=== PATIENT | male | born 1960 | race Caucasian/White ===

== ENCOUNTER 2017-10-20 12:11 | Day surgery (SDC) | payer BC, OTHER ==
[~2017-10-20 12:11] MED LIST: Lactated Ringers 1,000 ML IV SCH
--- NOTE | 2017-10-20 12:35 | PCM.PREANE ---
Preanesthetic Assessment - Procedure Proposed Procedure: Colonoscopy and EGD - Anesthesia/Transfusion/Family Hx Anesthesia History: Prior Anesthesia Without Reaction Family History of Anesthesia Reaction: No Transfusion History: No Prior Transfusion(s) Intubation History: Unknown - Review of Systems General: No Symptoms, Other (Hep B) Pulmonary: No Symptoms Cardiovascular: Other (hypercholesterolemia) Gastrointestinal: Other (GERD) Neurological: Pre-Existing Deficit (pain in shoulder (R) after clavicle fracture and attendant injury to nerve, about 12 yr ago.) Other: Reports: None - Physical Assessment NPO Status Date: 10/19/17 NPO Status Time: 22:00 Height: 5 ft 9 in Weight: 201 lb ASA Class: 2 Mental Status: Alert & Oriented x3 ROM/Head Extension: Full Lungs: Clear to Auscultation, Normal Respiratory Effort Cardiovascular: Regular Rate, Regular Rhythm - Allergies Allergies/Adverse Reactions: Allergies Allergy/AdvReac Type Severity Reaction Status Date / Time No Known Allergies Allergy Verified 10/16/17 14:57 - Blood Blood Available: No Product(s) Available: None - Anesthesia Plan Pre-Op Medication Ordered: None - Acknowledgements Anesthesia Type Planned: MAC Pt an Appropriate Candidate for the Planned Anesthesia: Yes Alternatives and Risks of Anesthesia Discussed w Pt/Guardian: Yes Pt/Guardian Understands and Agrees with Anesthesia Plan: Yes PreAnesthesia Questionnaire - Past Health History Medical/Surgical History: Denies Medical/Surgical History HEENT History: Reports: Other (See Below) Other HEENT History: wears glasses, top denture, hx of fx nose Cardiovascular History: Reports: High Cholesterol Gastrointestinal History: Reports: Colon Polyp, GERD, Hepatitis Other Gastrointestinal History: states "they are unsure if its hepatitis B or from the flu shot"? Genitourinary History: Reports: Renal Calculus Musculoskeletal History: Reports: Arthritis, Fracture Other Musculoskeletal History: multiple fx's, states has pinched nerve in rt shoulder which causes him pain Neurological History: Reports: None Endocrine/Metabolic History: Reports: None Dermatologic History: Reports: Other (See Below) Other Dermatologic History: rash to forehead - Past Surgical History Head Surgeries/Procedures: Reports: None GI Surgical History: Reports: Colonoscopy, Hernia, Inguinal, Other (See Below) Other GI Surgeries/Procedures: inguinal heria repair as an , surgical removal of nerve from groin Musculoskeletal Surgical History: Reports: Shoulder Surgery Other Musculoskeletal Surgeries/Procedures:: rt shoulder arm and wrist surgery - SUBSTANCE USE Smoking Status *Q: Former Smoker Recreational Drug Use History: No - HOME MEDS Home Medications: Home Meds Famotidine 20 mg PO DAILY 10/16/17 [History] Fish Oil/[place]-3 Fatty Acids [Fish Oil 1,000 MG] 2,000 mg PO BID 10/16/17 [ History] Triamcinolone Acetonide [Kenalog] 1 spray TOP ASDIRECTED PRN 10/16/17 [History] atorvaSTATin Calcium [Atorvastatin Calcium] 10 mg PO DAILY 10/16/17 [History] - CURRENT (IN HOUSE) MEDS Current Meds: Current Medications Lactated Ringer's (Ringers, Lactated) 1,000 mls @ 125 mls/hr IV ASDIRECTED MARCO
[2017-10-20] MEDS ORDERED: Midazolam 1 MG/ML 2 ML SDV ONE (13:22)
[2017-10-20] MEDS ORDERED: Propofol 200 MG/20 ML SDV ONE (13:22)
[2017-10-20] MEDS ORDERED: Lidocaine 2% 5 ML SDV ONE (13:23)
[2017-10-20] MEDS ORDERED: fentaNYL 100 MCG/2 ML SDV ONE (13:23)
--- NOTE | 2017-10-20 13:55 | PCM.OPNOTE ---
- General Post-Op/Procedure Note Date of Surgery/Procedure: 10/20/17 Operative Procedure(s): egd w bx. colonoscopy Findings: see [id number] Pre Op Diagnosis: gerd and scrn colonoscopy Post-Op Diagnosis: Same Anesthesia Technique: Moderate Sedation Primary Surgeon: Kt Alamo Pathology: egd bx Complications: None Condition: Good
--- NOTE | 2017-10-20 14:03 | PCM.POSTAN ---
POST ANESTHESIA ASSESSMENT - MENTAL STATUS Mental Status: Alert, Oriented - RESPIRATORY Respiratory Status: Respiratory Rate WNL, Airway Patent, O2 Saturation Stable - CARDIOVASCULAR CV Status: Pulse Rate WNL, Blood Pressure Stable - GASTROINTESTINAL GI Status: No Symptoms - PAIN Pain Score: 0 - POST OP HYDRATION Hydration Status: Adequate & Stable - OBSERVATIONS Free Text/Narrative:: Pt stable with no complaints
--- NOTE | 2017-10-20 14:14 | PCM48HPAN ---
Post Anesthesia Note - EVALUATION WITHIN 48HRS OF ANESTHETIC Vital Signs in Normal Range: Yes Patient Participated in Evaluation: Yes Respiratory Function Stable: Yes Airway Patent: Yes Cardiovascular Function Stable: Yes Hydration Status Stable: Yes Pain Control Satisfactory: Yes Nausea and Vomiting Control Satisfactory: Yes Resp Rate: 14
--- NOTE | 2017-10-20 14:48 | OR ---
SURGEON: Kt Alamo MD DATE OF PROCEDURE: 10/20/2017 PREOPERATIVE DIAGNOSIS: Screening colonoscopy. POSTOPERATIVE DIAGNOSIS: Screening colonoscopy. PROCEDURES PERFORMED: Esophagogastroduodenoscopy with biopsy, and colonoscopy. PROCEDURE IN DETAIL: EGD: The patient was taken to the endoscopy room, and with the MANDARIN TUTOR, Diprivan was administered. A well-lubricated EGD scope was gently inserted through the oropharynx, down the esophagus, passing through the gastroesophageal junction, into the stomach. The mucosa was examined upon the passage. Any etiology will be noted. Once in the stomach, we continued to advance to the distal antrum, passed through the pylorus into the second portion of the duodenum. Again, the mucosa was examined for any abnormality and etiology. The scope was then retrieved back to the stomach and then retroflexed to look at the fundus of the stomach. If a biopsy was indicated, we will biopsy the antrum, body, and gastroesophageal junction. The air will be sucked out while the scope is retrieved to reduce the patient's discomfort. The patient tolerated the procedure well. There were no intraoperative complications. Dr. Alamo was present through the whole procedure. Prior to surgery, a time-out had been called, the patient identified, procedure identified and antibiotic administered. Colonoscopy procedure: The patient was taken to the endoscopy room. A time out was called, patient identified, and procedure identified. Diprivan was then administrated. Patient went from awake to sleep, hearing doctor talking or door closing is normal. Perineum inspection and digital examination were then performed. A well- lubricated colonoscope was gently inserted through the rectum, advanced past the rectosigmoid junction, the descending colon, splenic flexure, transverse colon, hepatic flexure, ascending colon, arrived to the cecum. Cecum was identified as dictated in the finding. Then the scope was carefully withdrawn while attention was paid to the mucosal surface for any abnormality. Air will be sucked out during the scope withdrawal. At the rectum, retroflexed to examine any rectal diseases, fistula or hemorrhoids. Patient tolerated procedure well. There were no intraoperative complications, and Dr. Alaom was present throughout the whole procedure. FINDINGS: EGD findings: 1. The patient is easily sedated with MANDARIN TUTOR and Diprivan. The patient is soundly snoring. 2. Oropharynx and proximal esophagus are free of disease, and GE junction at 40 shows very minimal salmon-color change suggests almost no acid reflux, and stomach rugae is normal in appearance, and antrum is normal in appearance, and duodenum is grossly normal. Retroflexed look at the fundus of stomach, and there was no hiatal hernia. Biopsy done at antrum, body, GE junction at 40, and sucked out the gas while scope pulling out. The patient does not have food particle, bile, blood, or ulcer in the stomach. Colonoscopy findings: 1. The patient is easily sedated with MANDARIN TUTOR and Diprivan. The patient is soundly snoring. 2. Bowel prep is average with some liquid stool. No semi-formed stool. 3. Colon is rather straight forward. Cecum indicated by ileocecal fold, one- to-one indentation, light emittance, and appendiceal orifice. Mucosa examined upon scope pulling out. The patient does not have diverticulosis, polyp, mass, growth, inflammation, stricture, ulceration, or AV malformation. The patient does have mild internal hemorrhoids. No external hemorrhoids. The patient would benefit from repeat colonoscopy in 10 years from today or if clinically indicated otherwise. JOHN / SABINO /[id number]
[2017-10-20] MEDS ORDERED: Benzocaine 20% Topical Spray UD MUCMEM ONE (15:00)
== END 2017-10-20 14:47 | disposition home or self-care (01) ==
LOC: MW.SDS 12:11
PROVIDERS: ATTEND Surgery
DX: Z12.11 Encounter for screening for malignant neoplasm of colon (principal); K64.8 Other hemorrhoids; K29.50 Unspecified chronic gastritis without bleeding; B19.10 Unspecified viral hepatitis B without hepatic coma; E78.00 Pure hypercholesterolemia, unspecified; M06.9 Rheumatoid arthritis, unspecified; Z79.899 Other long term (current) drug therapy; Z98.890 Other specified postprocedural states; Z87.891 Personal history of nicotine dependence
CPT/HCPCS: 43239; 45378; A9270; J2250; J2704; J3010; J7120; 88305; 88312

== ENCOUNTER 2018-07-15 16:31 | Emergency (ER) | payer BC, OTHER ==
[2018-07-15] MEDS ORDERED: Sodium Chloride 0.9% 10 ML Syringe FLUSH PRN (16:57)
[2018-07-15] MEDS ORDERED: Sodium Chloride 0.9% 2.5 ML Syringe FLUSH PRN (16:57)
--- NOTE | 2018-07-15 16:58 | EDM.PDOC ---
ED HPI GENERAL MEDICAL PROBLEM - General Chief Complaint: Flank Pain Stated Complaint: KIDNEY STONES Time Seen by Provider: 07/15/18 16:33 Source of Information: Reports: Patient History Limitations: Reports: No Limitations - History of Present Illness INITIAL COMMENTS - FREE TEXT/NARRATIVE: History of present illness: []Patient started having left flank pain is ago. He has a history of kidney stones and states it feels the same. Subsided a little yesterday and came back worse today. He denies any fevers, chills, nausea, vomiting or diarrhea. Review of systems: As per history of present illness and below otherwise all systems reviewed and negative. Past medical history: As per history of present illness and as reviewed below otherwise noncontributory. Surgical history: As per history of present illness and as reviewed below otherwise noncontributory. Social history: No reported history of drug or alcohol abuse. Family history: As per history of present illness and as reviewed below otherwise noncontributory. Physical exam: General: Well developed, well nourished in mild painful distress HEENT: Atraumatic, normocephalic, pupils reactive, negative for conjunctival pallor or scleral icterus, mucous membranes moist, throat clear, neck supple, nontender, trachea midline. Lungs: Clear to auscultation, breath sounds equal bilaterally, chest nontender. Heart: S1S2, regular, negative for clicks, rubs, or JVD. Abdomen: NABS, Soft, nondistended, nontender. Negative for masses or hepatosplenomegaly. Negative for costovertebral tenderness. Pelvis: Stable nontender. Genitourinary: Deferred. Rectal: Deferred. Extremities: Atraumatic, negative for cords or calf pain. Neurovascular unremarkable. Neuro: Awake, alert, oriented. Cranial nerves II through XII unremarkable. Cerebellum unremarkable. Motor and sensory unremarkable throughout. Exam nonfocal. Skin:warm and dry Diagnostics: CBC, chemistry-BUN/creatinine is 10/0.9, UA, CT abdomen pelvis without contrast : An acutely obstructing 4 mm stone is present at the left ureterovesical junction. Mild left hydroureter and hydronephrosis is demonstrated along with periureteral and perinephric stranding. A 2 mm stone is present in the left renal collecting system. No other stone is evident. The kidneys are otherwise unremarkable except for several small parenchymal cysts bilaterally. The bladder is grossly negative. Therapeutics: IV hydration, Toradol, Flomax, Dilaudid ED Course: Stable Impression: Ureterolithiasis with obstructing 4 mm stone Prescriptions: Tramadol the instruments, Flomax E prescribed Plan: Take meds as directed, follow up with neurology physician, return to ER if symptoms worsen or change. Definitive disposition and diagnosis as appropriate pending reevaluation and review of above. left flank Pain Score (Numeric/FACES): 10 - Related Data Allergies Allergy/AdvReac Type Severity Reaction Status Date / Time No Known Allergies Allergy Verified 07/15/18 16:50 Home Meds: Home Meds atorvaSTATin Calcium [Atorvastatin Calcium] 10 mg PO DAILY 10/16/17 [History] Tamsulosin HCl [Flomax] 0.4 mg PO DAILY #14 cap.er.24h 07/15/18 [Rx] Urinary Medication 07/15/18 [History] Past Medical History - Past Health History Medical/Surgical History: Denies Medical/Surgical History HEENT History: Reports: Other (See Below) Other HEENT History: wears glasses, top denture, hx of fx nose Cardiovascular History: Reports: High Cholesterol Respiratory History: Reports: None Gastrointestinal History: Reports: Colon Polyp, GERD, Hepatitis Other Gastrointestinal History: states "they are unsure if its hepatitis B or from the flu shot"? Genitourinary History: Reports: Renal Calculus Musculoskeletal History: Reports: Arthritis, Fracture Other Musculoskeletal History: multiple fx's, states has pinched nerve in rt shoulder which causes him pain Neurological History: Reports: None Psychiatric History: Reports: None Endocrine/Metabolic History: Reports: None Hematologic History: Reports: None Immunologic History: Reports: None Oncologic (Cancer) History: Reports: None Dermatologic History: Reports: Other (See Below) Other Dermatologic History: rash to forehead - Infectious Disease History Infectious Disease History: Reports: Hepatitis B - Past Surgical History Head Surgeries/Procedures: Reports: None HEENT Surgical History: Reports: None Cardiovascular Surgical History: Reports: None Respiratory Surgical History: Reports: None GI Surgical History: Reports: Colonoscopy, Hernia, Inguinal, Other (See Below) Other GI Surgeries/Procedures: inguinal heria repair as an infant, surgical removal of nerve from groin Male Surgical History: Reports: None Endocrine Surgical History: Reports: None Neurological Surgical History: Reports: None Musculoskeletal Surgical History: Reports: Shoulder Surgery Other Musculoskeletal Surgeries/Procedures:: rt shoulder arm and wrist surgery Oncologic Surgical History: Reports: None Dermatological Surgical History: Reports: None Social & Family History - Family History Family Medical History: Noncontributory - Tobacco Use Smoking Status *Q: Former Smoker Used Tobacco, but Quit: Yes Month/Year Tobacco Last Used: 5 years - Caffeine Use Caffeine Use: Reports: Coffee - Recreational Drug Use Recreational Drug Use: No ED ROS GENERAL - Review of Systems Review Of Systems: ROS reveals no pertinent complaints other than HPI. ED EXAM, RENAL/ - Physical Exam Exam: See Below (See history of present illness) Course - Vital Signs Last Recorded V/S: Last Vital Signs Temp 97.8 F 07/15/18 16:51 Pulse 72 07/15/18 16:51 Resp 18 07/15/18 16:51 BP 129/106 H 07/15/18 16:51 Pulse Ox 97 07/15/18 16:51 - Orders/Labs/Meds Orders: Active Orders 24 hr Category Date Time Status Sodium Chloride 0.9% [Saline Flush] Med 07/15/18 16:57 Active 10 ml FLUSH ASDIRECTED PRN Sodium Chloride 0.9% [Saline Flush] Med 07/15/18 16:57 Active 2.5 ml FLUSH ASDIRECTED PRN Saline Lock Insert [OM.PC] Stat Oth 07/15/18 16:56 Ordered Medication Orders Sodium Chloride (Saline Flush) 10 ml FLUSH ASDIRECTED PRN PRN Reason: Keep Vein Open Last Admin: 07/15/18 17:30 Dose: 10 ml Sodium Chloride (Saline Flush) 2.5 ml FLUSH ASDIRECTED PRN PRN Reason: Keep Vein Open Last Admin: 07/15/18 17:30 Dose: 2.5 ml Labs: Laboratory Tests 07/15/18 07/15/18 07/15/18 Range/Units 16:52 17:02 17:02 WBC 9.04 (4.0-11.0) K/uL RBC 4.98 (4.50-5.90) M/uL Hgb 15.9 (13.0-17.0) g/dL Hct 45.3 (38.0-50.0) % MCV 91.0 (80.0-98.0) fL MCH 31.9 (27.0-32.0) pg MCHC 35.1 (31.0-37.0) g/dL RDW Std Deviation 42.0 (28.0-62.0) fl RDW Coeff of Joelle 13 (11.0-15.0) % Plt Count 152 (150-400) K/uL MPV 9.90 (7.40-12.00) fL Neut % (Auto) 83.4 H (48.0-80.0) % Lymph % (Auto) 10.3 L (16.0-40.0) % [place] % (Auto) 6.0 (0.0-15.0) % Eos % (Auto) 0.2 (0.0-7.0) % Baso % (Auto) 0.1 (0.0-1.5) % Neut # (Auto) 7.5 H (1.4-5.7) K/uL Lymph # (Auto) 0.9 (0.6-2.4) K/uL [place] # (Auto) 0.5 (0.0-0.8) K/uL Eos # (Auto) 0.0 (0.0-0.7) K/uL Baso # (Auto) 0.0 (0.0-0.1) K/uL Nucleated RBC % 0.0 /100WBC Nucleated RBCs # 0 K/uL Sodium 139 (136-148) mmol/L Potassium 4.4 (3.5-5.1) mmol/L Chloride 101 (98-107) mmol/L Carbon Dioxide 25.7 (21.0-32.0) mmol/L BUN 10 (7.0-18.0) mg/dL Creatinine 0.9 (0.8-1.3) mg/dL Est Cr Clr Drug Dosing 87.28 mL/min Estimated GFR (MDRD) > 60.0 ml/min Glucose 107 H (74-106) mg/dL Calcium 9.6 (8.5-10.1) mg/dL Total Bilirubin 0.7 (0.2-1.0) mg/dL AST 22 (15-37) IU/L ALT 25 (14-63) IU/L Alkaline Phosphatase 66 (46-116) U/L Total Protein 8.1 (6.4-8.2) g/dL Albumin 4.5 (3.4-5.0) g/dL Globulin 3.6 (2.6-4.0) g/dL Albumin/Globulin Ratio 1.2 (0.9-1.6) Urine Color YELLOW Urine Appearance CLEAR Urine pH 6.5 (5.0-8.0) Ur Specific [place] <= 1.005 (1.001-1.035) Urine Protein NEGATIVE (NEGATIVE) mg/dL Urine Glucose (UA) NEGATIVE (NEGATIVE) mg/dL Urine Ketones NEGATIVE (NEGATIVE) mg/dL Urine Occult Blood SMALL H (NEGATIVE) Urine Nitrite NEGATIVE (NEGATIVE) Urine Bilirubin NEGATIVE (NEGATIVE) Urine Urobilinogen 0.2 (<2.0) EU/dL Ur Leukocyte Esterase NEGATIVE (NEGATIVE) Urine RBC 0-1 (0-2/HPF) Urine WBC 0-1 (0-5/HPF) Ur Epithelial Cells RARE (NONE-FEW) Urine Bacteria RARE (NEGATIVE) Meds: Medications Generic Name Dose Route Start Last Admin Trade Name Ravinder PRN Reason Stop Dose Admin Sodium Chloride 10 ml 07/15/18 16:57 07/15/18 17:30 Saline Flush FLUSH 10 ml ASDIRECTED PRN Administration Keep Vein Open Sodium Chloride 2.5 ml 07/15/18 16:57 07/15/18 17:30 Saline Flush FLUSH 2.5 ml ASDIRECTED PRN Administration Keep Vein Open Discontinued Medications Generic Name Dose Route Start Last Admin Trade Name Freq PRN Reason Stop Dose Admin Hydromorphone HCl 0.5 mg 07/15/18 19:05 Dilaudid IVPUSH 07/15/18 19:06 ONETIME ONE Sodium Chloride 1,000 mls @ 999 mls/hr 07/15/18 17:20 07/15/18 17:30 Normal Saline IV 07/15/18 18:20 999 mls/hr .Bolus ONE Administration Ketorolac Tromethamine 30 mg 07/15/18 17:24 07/15/18 17:30 Toradol IVPUSH 07/15/18 17:25 30 mg ONETIME ONE Administration Ondansetron HCl 4 mg 07/15/18 19:05 Zofran IVPUSH 07/15/18 19:06 ONETIME ONE Tamsulosin HCl 0.4 mg 07/15/18 19:06 Flomax PO 07/15/18 19:07 ONETIME ONE Departure - Departure Time of Disposition: 19:12 Disposition: Home, Self-Care 01 Condition: Good Clinical Impression: Ureterolithiasis - Discharge Information *PRESCRIPTION DRUG MONITORING PROGRAM REVIEWED*: No *COPY OF PRESCRIPTION DRUG MONITORING REPORT IN PATIENT SEGUN: No Prescriptions: Tamsulosin HCl [Flomax] 0.4 mg PO DAILY #14 cap.er.24h Referrals: PCP,Unknown [Primary Care Provider] - Forms: ED Department Discharge Additional Instructions: The following information is given to patients seen in the emergency department who are being discharged to home. This information is to outline your options for follow-up care. We provide all patients seen in our emergency department with a follow-up referral. The need for follow-up, as well as the timing and circumstances, are variable depending upon the specifics of your emergency department visit. If you don't have a primary care physician on staff, we will provide you with a referral. We always advise you to contact your personal physician following an emergency department visit to inform them of the circumstance of the visit and for follow-up with them and/or the need for any referrals to a consulting specialist. The emergency department will also refer you to a specialist when appropriate. This referral assures that you have the opportunity for follow-up care with a specialist. All of these measure are taken in an effort to provide you with optimal care, which includes your follow-up. Under all circumstances we always encourage you to contact your private physician who remains a resource for coordinating your care. When calling for follow-up care, please make the office aware that this follow-up is from your recent emergency room visit. If for any reason you are refused follow-up, please contact the [facility] Emergency Department at and asked to speak to the emergency department charge nurse. Take meds as directed, follow up with your primary care physician, return to ER if symptoms worsen or change. Follow-up with: [facility] - Urology [address] [place] [id number] - My Orders Last 24 Hours: My Active Orders 07/15/18 16:56 Saline Lock Insert [OM.PC] Stat 07/15/18 16:57 Sodium Chloride 0.9% [Saline Flush] 10 ml FLUSH ASDIRECTED PRN Sodium Chloride 0.9% [Saline Flush] 2.5 ml FLUSH ASDIRECTED PRN - Assessment/Plan Last 24 Hours: My Active Orders 07/15/18 16:56 Saline Lock Insert [OM.PC] Stat 07/15/18 16:57 Sodium Chloride 0.9% [Saline Flush] 10 ml FLUSH ASDIRECTED PRN Sodium Chloride 0.9% [Saline Flush] 2.5 ml FLUSH ASDIRECTED PRN
[2018-07-15] MEDS ORDERED: Sodium Chloride 0.9% 1,000 ML IV ONE (17:20)
[2018-07-15] MEDS ORDERED: Ketorolac 30 MG/ML SDV IVPUSH ONE (17:24)
[2018-07-15 17:54] LABS: CHLORIDE,CL 101 mmol/L (98-107); SODIUM,NA 139 mmol/L (136-148)
--- NOTE | 2018-07-15 19:01 | CT ---
INDICATION: Left flank pain since Monday. History of stones. TECHNIQUE: Volumetric helical scanning of the abdomen and pelvis was performed without contrast material. Coronal and sagittal reconstructions were obtained. COMPARISON: Abdomen/pelvis CT of 10/07/2013. FINDINGS: An acutely obstructing 4 mm stone is present at the left ureterovesical junction. Mild left hydroureter and hydronephrosis is demonstrated along with periureteral and perinephric stranding. A 2 mm stone is present in the left renal collecting system. No other stone is evident. The kidneys are otherwise unremarkable except for several small parenchymal cysts bilaterally. The bladder is grossly negative. The prostate is mild to moderately enlarged. No free fluid is evident. The liver is normal in size, shape and attenuation. No bile duct dilation is evident. The spleen is within normal limits. The adrenal glands are unremarkable. The pancreas is within normal limits. No lymphadenopathy is evident. The bowel is unremarkable. The lung bases are clear. The heart is normal in size. IMPRESSION: 1. Acutely obstructing 4 mm left UVJ stone. 2. 2 mm left renal collecting system stone and small renal parenchymal cysts bilaterally. 3. Mild to moderate prostate enlargement. Please note that all CT scans at this facility use dose modulation, iterative reconstruction, and/or weight-based dosing when appropriate to reduce radiation dose to as low as reasonably achievable. Dictated by Willy Cooper MD @ Jul 15 2018 6:53PM Signed by Dr. Willy Cooper @ Jul 15 2018 6:59PM
[2018-07-15] MEDS ORDERED: HYDROmorphone 2 MG/ML Syringe IVPUSH ONE (19:05)
[2018-07-15] MEDS ORDERED: Ondansetron 4 MG/2 ML SDV IVPUSH ONE (19:05)
[2018-07-15] MEDS ORDERED: Tamsulosin 0.4 MG Cap.ER PO ONE (19:06)
== END 2018-07-15 19:52 | disposition home or self-care (01) ==
LOC: MW.ED 16:31
DX: N13.2 Hydronephrosis with renal and ureteral calculous obstruction (principal); Z87.891 Personal history of nicotine dependence
CPT/HCPCS: 36415; 74176; 80053; 81001; 85025; 96361; 96374; 96375; 99284; A9270; J1170; J1885; J2405; J7040

== ENCOUNTER 2021-02-19 12:08 | Emergency (ER) | payer OTHER ==
--- NOTE | 2021-02-19 13:26 | EDM.PDOCBH ---
ED HPI GENERAL MEDICAL PROBLEM - General Chief Complaint: Behavioral/Psych Stated Complaint: COMMITAL Time Seen by Provider: 02/19/21 12:26 Source of Information: Reports: Police History Limitations: Reports: No Limitations - History of Present Illness INITIAL COMMENTS - FREE TEXT/NARRATIVE: HISTORY AND PHYSICAL: History of present illness: The patient is a 60-year-old male who presents to the emergency department in police custody with a court ordered committal. A petition from the patient's daughter Sheela Swain expresses concerns over suicidal statements that the patient has made on Facebook claiming that he cannot go on like this and that he has a shooting life. Sheela and numerous family members and friends believe that he will hurt himself or use aggressive actions towards his neighbors apparently apparently an every house and all of his neighbors the patient believes they are playing a stereo very loudly especially at night. He will stand outside and flipped the neighbors often yelling profanities. The petition indicates that the patient has taken fentanyl and cocaine during his younger years and they believe he is been using alcohol along with marijuana for his anxiety. He had been prescribed medication for depression and the family felt like he was getting better. He then stopped taking it because it made him sleep all the time. Patient stopped going to his medical appointments due to not sleeping at night because he hears a loud stereo. Review of systems: As per history of present illness and below otherwise all systems reviewed and negative. Past medical history: As per history of present illness and as reviewed below otherwise noncontributory. Surgical history: As per history of present illness and as reviewed below otherwise noncontributory. Social history: See social history for further information Family history: As per history of present illness and as reviewed below otherwise noncontributory. Physical exam: General: Well developed and well nourished. Alert and orientated x 3. Nontoxic in appearance and in no acute distress. Vital signs are stable and have been reviewed by me. Nursing notes were reviewed. HEENT: Atraumatic, normocephalic, pupils equal and reactive bilaterally, negative for conjunctival pallor or scleral icterus, mucous membranes moist, TMs normal bilaterally, throat clear, neck supple, nontender, trachea midline. No drooling or trismus noted. No meningeal signs. No hot potato voice noted. Lungs: Clear to auscultation bilaterally. No wheezes, rales, or rhonchi. Chest nontender. Normal work of breathing, no accessory muscles used. Heart: S1S2, regular rate and rhythm without overt murmur, gallops, or rubs. No JVD. No peripheral edema Abdomen: Soft, nondistended, nontender. Normoactive bowel sounds. Negative for masses or costovertebral tenderness. Skin: Intact, warm, dry. No lesions or rashes noted. Hematologic: No petechiae or purpra. Mucosa appropriate color and normal nail bed color and refill. Extremities: Atraumatic, moves all extremities per self without difficulty or deficits, negative for cords or calf pain. Neurovascular unremarkable. Neuro: Awake, alert, oriented. Cranial nerves II through XII unremarkable. Cerebellum unremarkable. Motor and sensory unremarkable throughout. Exam nonfocal. Psychiatric: Mood and affect are appropriate. Normal thought process. Answering questions appropriately. Notes: *This patient was seen and evaluated during the 2019 SARS-CoV-2 novel coronavirus pandemic period. Community viral transmission is ongoing at time of this encounter and the emergency department is operating under pandemic response procedures. Above the patient is a 60-year-old man who presents with a court ordered committal for mental health for possible self-harm and is in police custody. Upon first interviewing the patient he seemed hostile, but after speaking with him he calmed down and allowed for an exam. The patient's exam is benign except for a fast heart rate of 122. His EKG had a heart rate of 98. I believe the patient is just very anxious. We will do a behavioral health work-up and attempt to find placement. The patient's blood work is essentially negative except for a glucose elevated at 155. The patient is positive for cannabis. I spoke with regarding involuntary commitment and he felt that the patient met criteria. We will arrange for transportation. Patient is being transported via police department. Diagnostics: CBC, CMP, TSH, EKG, urinalysis, urine drug screen, troponin Impression: Suicidal ideation/involuntary commitment Definitive disposition and diagnosis as appropriate pending reevaluation and review of above. Generalized Pain Score (Numeric/FACES): 8 - Related Data Allergies Allergy/AdvReac Type Severity Reaction Status Date / Time No Known Allergies Allergy Verified 02/19/21 12:32 Home Meds: Home Meds . [Unable to Verify Home Med List] 02/19/21 [History] Past Medical History - Past Health History Medical/Surgical History: Denies Medical/Surgical History HEENT History: Reports: Other (See Below) Other HEENT History: wears glasses, top denture, hx of fx nose Cardiovascular History: Reports: High Cholesterol Respiratory History: Reports: None Gastrointestinal History: Reports: Colon Polyp, GERD, Hepatitis Other Gastrointestinal History: states "they are unsure if its hepatitis B or from the flu shot"? Genitourinary History: Reports: Renal Calculus Musculoskeletal History: Reports: Arthritis, Fracture Other Musculoskeletal History: multiple fx's, states has pinched nerve in rt shoulder which causes him pain Neurological History: Reports: None Psychiatric History: Reports: None Endocrine/Metabolic History: Reports: None Hematologic History: Reports: None Immunologic History: Reports: None Oncologic (Cancer) History: Reports: None Dermatologic History: Reports: Other (See Below) Other Dermatologic History: rash to forehead - Infectious Disease History Infectious Disease History: Reports: Hepatitis B - Past Surgical History Head Surgeries/Procedures: Reports: None HEENT Surgical History: Reports: None Cardiovascular Surgical History: Reports: None Respiratory Surgical History: Reports: None GI Surgical History: Reports: Colonoscopy, Hernia, Inguinal, Other (See Below) Other GI Surgeries/Procedures: inguinal heria repair as an infant, surgical removal of nerve from groin Male Surgical History: Reports: None Endocrine Surgical History: Reports: None Neurological Surgical History: Reports: None Musculoskeletal Surgical History: Reports: Shoulder Surgery Other Musculoskeletal Surgeries/Procedures:: rt shoulder arm and wrist surgery Oncologic Surgical History: Reports: None Dermatological Surgical History: Reports: None Social & Family History - Family History Family Medical History: No Pertinent Family History - Caffeine Use Caffeine Use: Reports: Coffee ED ROS GENERAL - Review of Systems Review Of Systems: Comprehensive ROS is negative, except as noted in HPI. ED EXAM, BEHAVIORAL HEALTH - Physical Exam Exam: See Below (See dictation) COURSE, BEHAVIORAL HEALTH COMP - Course Vital Signs: Last Vital Signs Temp 98.0 F 02/19/21 12:28 Pulse 110 H 02/19/21 15:17 Resp 16 02/19/21 15:17 BP 175/104 H 02/19/21 15:17 Pulse Ox 96 02/19/21 15:17 Orders, Labs, Meds: Laboratory Tests 02/19/21 02/19/21 02/19/21 Range/Units 13:40 13:52 13:52 WBC 10.39 (4.0-11.0) K/uL RBC 5.18 (4.50-5.90) M/uL Hgb 16.6 (13.0-17.0) g/dL Hct 47.4 (38.0-50.0) % MCV 91.5 (80.0-98.0) fL MCH 32.0 (27.0-32.0) pg MCHC 35.0 (31.0-37.0) g/dL RDW Std Deviation 42.7 (28.0-62.0) fl RDW Coeff of Joelle 13 (11.0-15.0) % Plt Count 171 (150-400) K/uL MPV 9.80 (7.40-12.00) fL Neut % (Auto) 86.4 H (48.0-80.0) % Lymph % (Auto) 8.0 L (16.0-40.0) % Bourbon % (Auto) 5.3 (0.0-15.0) % Eos % (Auto) 0.2 (0.0-7.0) % Baso % (Auto) 0.1 (0.0-1.5) % Neut # (Auto) 9.0 H (1.4-5.7) K/uL Lymph # (Auto) 0.8 (0.6-2.4) K/uL Bourbon # (Auto) 0.6 (0.0-0.8) K/uL Eos # (Auto) 0.0 (0.0-0.7) K/uL Baso # (Auto) 0.0 (0.0-0.1) K/uL Nucleated RBC % 0.0 /100WBC Nucleated RBCs # 0 K/uL Sodium 138 (136-148) mmol/L Potassium 4.0 (3.5-5.1) mmol/L Chloride 100 (98-107) mmol/L Carbon Dioxide 26.3 (21.0-32.0) mmol/L BUN 16 (7.0-18.0) mg/dL Creatinine 0.9 (0.8-1.3) mg/dL Est Cr Clr Drug Dosing 85.10 mL/min Estimated GFR (MDRD) > 60.0 ml/min Glucose 153 H (74-106) mg/dL Calcium 9.7 (8.5-10.1) mg/dL Magnesium 1.9 (1.8-2.4) mg/dL Total Bilirubin 0.4 (0.2-1.0) mg/dL AST 16 (15-37) IU/L ALT 26 (14-63) IU/L Alkaline Phosphatase 80 (46-116) U/L Troponin I < 0.050 (0.000-0.056) ng/mL Total Protein 8.1 (6.4-8.2) g/dL Albumin 4.3 (3.4-5.0) g/dL Globulin 3.8 (2.6-4.0) g/dL Albumin/Globulin Ratio 1.1 (0.9-1.6) TSH, Ultra Sensitive 1.41 (0.36-3.74) uIU/mL Urine Color Urine Appearance Urine pH (5.0-8.0) Ur Specific Pender (1.001-1.035) Urine Protein (NEGATIVE) mg/dL Urine Glucose (UA) (NEGATIVE) mg/dL Urine Ketones (NEGATIVE) mg/dL Urine Occult Blood (NEGATIVE) Urine Nitrite (NEGATIVE) Urine Bilirubin (NEGATIVE) Urine Urobilinogen (<2.0) EU/dL Ur Leukocyte Esterase (NEGATIVE) Urine RBC (0-2/HPF) Urine WBC (0-5/HPF) Ur Epithelial Cells (NONE-FEW) Urine Bacteria (NEGATIVE) Urine Mucus (NONE-MOD) Salicylates 1.9 (0-20) mg/dL Urine Opiates Screen (NEGATIVE) Ur Oxycodone Screen (NEGATIVE) Urine Methadone Screen (NEGATIVE) Acetaminophen <2.0 ug/mL Ur Barbiturates Screen (NEGATIVE) Ur Phencyclidine Scrn (NEGATIVE) Ur Amphetamine Screen (NEGATIVE) U Methamphetamines Scrn (NEGATIVE) U Benzodiazepines Scrn (NEGATIVE) U Cocaine Metab Screen (NEGATIVE) U Marijuana (THC) Screen (NEGATIVE) Ethyl Alcohol < 3.0 mg/dL Influenza Type A RNA NEGATIVE (NEGATIVE) Influenza Type B RNA NEGATIVE (NEGATIVE) SARS-CoV-2 RNA (KARSTEN) NEGATIVE (NEGATIVE) 02/19/21 02/19/21 Range/Units 14:00 14:00 WBC (4.0-11.0) K/uL RBC (4.50-5.90) M/uL Hgb (13.0-17.0) g/dL Hct (38.0-50.0) % MCV (80.0-98.0) fL MCH (27.0-32.0) pg MCHC (31.0-37.0) g/dL RDW Std Deviation (28.0-62.0) fl RDW Coeff of Joelle (11.0-15.0) % Plt Count (150-400) K/uL MPV (7.40-12.00) fL Neut % (Auto) (48.0-80.0) % Lymph % (Auto) (16.0-40.0) % Bourbon % (Auto) (0.0-15.0) % Eos % (Auto) (0.0-7.0) % Baso % (Auto) (0.0-1.5) % Neut # (Auto) (1.4-5.7) K/uL Lymph # (Auto) (0.6-2.4) K/uL Bourbon # (Auto) (0.0-0.8) K/uL Eos # (Auto) (0.0-0.7) K/uL Baso # (Auto) (0.0-0.1) K/uL Nucleated RBC % /100WBC Nucleated RBCs # K/uL Sodium (136-148) mmol/L Potassium (3.5-5.1) mmol/L Chloride (98-107) mmol/L Carbon Dioxide (21.0-32.0) mmol/L BUN (7.0-18.0) mg/dL Creatinine (0.8-1.3) mg/dL Est Cr Clr Drug Dosing mL/min Estimated GFR (MDRD) ml/min Glucose (74-106) mg/dL Calcium (8.5-10.1) mg/dL Magnesium (1.8-2.4) mg/dL Total Bilirubin (0.2-1.0) mg/dL AST (15-37) IU/L ALT (14-63) IU/L Alkaline Phosphatase (46-116) U/L Troponin I (0.000-0.056) ng/mL Total Protein (6.4-8.2) g/dL Albumin (3.4-5.0) g/dL Globulin (2.6-4.0) g/dL Albumin/Globulin Ratio (0.9-1.6) TSH, Ultra Sensitive (0.36-3.74) uIU/mL Urine Color YELLOW Urine Appearance CLEAR Urine pH 6.0 (5.0-8.0) Ur Specific Pender 1.015 (1.001-1.035) Urine Protein NEGATIVE (NEGATIVE) mg/dL Urine Glucose (UA) NEGATIVE (NEGATIVE) mg/dL Urine Ketones NEGATIVE (NEGATIVE) mg/dL Urine Occult Blood NEGATIVE (NEGATIVE) Urine Nitrite NEGATIVE (NEGATIVE) Urine Bilirubin NEGATIVE (NEGATIVE) Urine Urobilinogen 0.2 (<2.0) EU/dL Ur Leukocyte Esterase NEGATIVE (NEGATIVE) Urine RBC NONE SEEN (0-2/HPF) Urine WBC 0-2 (0-5/HPF) Ur Epithelial Cells OCCASIONAL (NONE-FEW) Urine Bacteria FEW (NEGATIVE) Urine Mucus LIGHT (NONE-MOD) Salicylates (0-20) mg/dL Urine Opiates Screen NEGATIVE (NEGATIVE) Ur Oxycodone Screen NEGATIVE (NEGATIVE) Urine Methadone Screen NEGATIVE (NEGATIVE) Acetaminophen ug/mL Ur Barbiturates Screen NEGATIVE (NEGATIVE) Ur Phencyclidine Scrn NEGATIVE (NEGATIVE) Ur Amphetamine Screen NEGATIVE (NEGATIVE) U Methamphetamines Scrn NEGATIVE (NEGATIVE) U Benzodiazepines Scrn NEGATIVE (NEGATIVE) U Cocaine Metab Screen NEGATIVE (NEGATIVE) U Marijuana (THC) Screen POSITIVE (NEGATIVE) Ethyl Alcohol mg/dL Influenza Type A RNA (NEGATIVE) Influenza Type B RNA (NEGATIVE) SARS-CoV-2 RNA (KARSTEN) (NEGATIVE) Departure - Departure Time of Disposition: 15:35 Disposition: DC/Tfer to Psych Hosp/Unit 65 Condition: Good Clinical Impression: Self-harm - Discharge Information *PRESCRIPTION DRUG MONITORING PROGRAM REVIEWED*: Not Applicable *COPY OF PRESCRIPTION DRUG MONITORING REPORT IN PATIENT SEGUN: Not Applicable Referrals: PCP,None [Primary Care Provider] - Forms: ED Department Discharge Sepsis Event Note (ED) - Evaluation Sepsis Screening Result: No Definite Risk - Focused Exam Vital Signs: Vital Signs Temp Pulse Resp BP Pulse Ox 02/19/21 15:17 110 H 16 175/104 H 96 02/19/21 12:28 98.0 F 120 H 18 187/120 H 97
--- NOTE | 2021-02-19 13:28 | PCM.EKG ---
#1 Interpretation EKG Date: 02/19/21 Time: 13:28 EKG Interpretation Comments: Sinus tachycardia rate of 114 some findings of LVH but no acute ischemia
[2021-02-19 14:23] LABS: CORONAVIRUS COVID-19 NAA NEGATIVE (NEGATIVE); INFLUENZA A NAA NEGATIVE (NEGATIVE); INFLUENZA B NAA NEGATIVE (NEGATIVE)
[2021-02-19 15:17] LABS: ACETAMINOPHEN <2.0 ug/mL; BLOOD UREA NITROGEN,BUN 16 mg/dL (7.0-18.0); CARBON DIOXIDE,CO2 26.3 mmol/L (21.0-32.0); CHLORIDE,CL 100 mmol/L (98-107); GLUCOSE RANDOM 153 mg/dL (74-106); SODIUM,NA 138 mmol/L (136-148)
== END 2021-02-19 16:17 ==
LOC: MW.ED 12:08
DX: R45.851 Suicidal ideations (principal); Z20.822 Contact with and (suspected) exposure to COVID-19
CPT/HCPCS: 0240U; 36415; 80053; 80143; 80179; 80305; 80307; 81001; 83735; 84443; 84484; 85025; 93005; 99285

== ENCOUNTER 2023-02-03 16:23 | Emergency (ER) | payer SELFPAY ==
[2023-02-03] MEDS ORDERED: OLANZapine 20 MG in Water For Injection, Sterile 2.1 ML IM ONE (18:23)
[2023-02-03 18:52] LABS: BASOPHILS ABSOLUTE AUTO 0.02 K/uL (0.00-0.20); BASOPHILS PERCENT AUTO 0.2 % (0.0-1.0); EOSINOPHILS ABSOLUTE AUTO 0.06 K/uL (0.00-0.45); EOSINOPHILS PERCENT AUTO 0.7 % (0.0-6.0); HEMATOCRIT 44.6 % (42.0-52.0); HEMOGLOBIN 15.8 g/dL (14.0-18.0); IMMATURE GRAN ABSOLUTE AUTO 0.02 K/uL (0.00-0.05); IMMATURE GRAN PERCENT AUTO 0.2 % (0.0-0.4); LYMPHOCYTES ABSOLUTE AUTO 1.02 K/uL (1.00-4.80); LYMPHOCYTES PERCENT AUTO 11.6 % (24.0-44.0); MEAN CORPUSCULAR HEMOGLOBIN 31.2 pg (28.0-32.0); MEAN CORPUSCULAR HGB CONC 35.4 g/dL (32.0-36.0); MEAN CORPUSCULAR VOLUME 88.1 fL (83.0-99.0); MEAN PLATELET VOLUME 9.3 fL (9.4-12.4); MONOCYTES ABSOLUTE AUTO 0.57 K/uL (0.00-0.80); MONOCYTES PERCENT AUTO 6.5 % (0.0-8.0); NEUTROPHILS PERCENT AUTO 80.8 % (41.0-71.0); PLATELET COUNT,PLT 150 K/uL (150-400); RED BLOOD CELL COUNT 5.06 M/uL (4.52-5.90); WHITE BLOOD CELL COUNT,WBC 8.79 K/uL (3.9-11.3)
[2023-02-03 19:27] LABS: AMPHETAMINES SCREEN, URINE NEGATIVE (CUTOFF=500); BARBITURATE SCREEN,URINE NEGATIVE (CUTOFF=200); BENZODIAZEPINES SCREEN,URINE NEGATIVE (CUTOFF=150); BUPRENORPHINE SCREEN,URINE NEGATIVE (CUTOFF=10); METHADONE SCREEN, URINE NEGATIVE (CUTOFF=200); METHAMPHETAMINES SCREEN, URINE NEGATIVE (CUTOFF=500); OXYCODONE SCREEN,URINE NEGATIVE (CUT0FF=100); PCP SCREEN,URINE NEGATIVE (CUTOFF=25); THC SCREEN,URINE 20 NG/ML PRESUMPTIVE POSITIVE (CUTOFF=50)
[2023-02-03 19:31] LABS: APPEARANCE,URINE CLEAR; BILIRUBIN,URINE NEGATIVE (NEGATIVE); COLOR,URINE YELLOW; GLUCOSE,URINE NEGATIVE (NEGATIVE); KETONES,URINE NEGATIVE (NEGATIVE); LEUKOCYTE ESTERASE,URINE NEGATIVE (NEGATIVE); NITRITE,URINE NEGATIVE (NEGATIVE); OCCULT BLOOD,URINE NEGATIVE (NEGATIVE); PROTEIN,URINE NEGATIVE (NEGATIVE); UROBILINOGEN,URINE 0.2 EU/dL (<2.0)
[2023-02-03 19:38] LABS: A/G RATIO 1.1 (0.9-1.6); ALBUMIN 4.1 g/dL (3.4-5.0); BILIRUBIN TOTAL 0.3 mg/dL (0.2-1.0); CALCIUM 9.1 mg/dL (8.5-10.1); CARBON DIOXIDE,CO2 23.8 mmol/L (21.0-32.0); CREATININE 1.1 mg/dL (0.8-1.3); EST CRCL DRUG DOSING (CG) 65.64 mL/min; POTASSIUM,K 3.8 mmol/L (3.5-5.1); PROTEIN TOTAL,TP 7.9 g/dL (6.4-8.2)
[2023-02-03 19:49] LABS: ACETAMINOPHEN <2.0 ug/mL; MAGNESIUM 1.9 mg/dL (1.8-2.4); SALICYLATE 4.5 mg/dL (0.0-20.0); T3 FREE 2.43 pg/mL (2.18-3.98); T4 FREE 0.94 ng/dL (0.76-1.46); TSH ULTRASENSITIVE 0.91 uIU/mL (0.36-3.74)
[2023-02-03 19:57] LABS: ETHANOL BLOOD MEDICAL < 3.0 mg/dL
== END 2023-02-03 21:41 ==
LOC: MW.ED 16:23
DX: Z02.89 Encounter for other administrative examinations (principal)
CPT/HCPCS: 36415; 80053; 80143; 80179; 80305-QW; 80307; 81003; 83735; 84439; 84443; 84481; 85025; 99283; 99285